=== PATIENT | male | born 1990 | race Two or more races ===

== ENCOUNTER → 2020-05-13 | Day surgery (SDC) | payer OTHER ==
[~2020-05-13] VITALS: Ht 172.7 cm; Wt 77.1 kg
[2020-05-13] VITALS (7 sets, daily range): BP systolic 116–133; BP diastolic 69–82
[~2020-05-13] MED LIST: BSS 15ml BTL ONE; BSS 500ml btl ONE; Bupivacaine 0.75% 30ml vial INJ ONE; Cyclopentolate 2% Opth Sol ONE; DiphenhydrAMINE 50mg/ml Inj IVP PRN; EPINEPHrine 1mg/1ml Amp ONE; Goniotaire 2.5% Opth Soln - 15ml ONE; Indocyanine Green 25mg Inj INJ ONE; Kenalog-40 1ml Vial ONE; LR 1000ml 1,000 ML IVLG SCH; LR 1000ml ONE; Lidocaine 2% MPF 5ml Vial INJ ONE; Maxitrol Opth Oint 3.5gm ONE; Meperidine 25mg/1ml Inj (FOR RIGORS ONLY) IV PRN; Midazolam 2mg/2ml Inj ONE; NS Irrig 1000ml ONE; Phenylephrine 2.5% Op 2ml Soln ONE; Povidone-Iodine 5% opth solution ONE; Proparacaine 0.5% Opth Soln 15ml LEFT EYE SCH; Proparacaine 0.5% Opth Soln 15ml ONE; Sodium Hyaluronate 10 mg/ml 0.85ml ONE; Sterile Water Irrig 1000ml IRRIG ONE; Tetracaine 0.5% Opth 4ml Soln ONE; Tropicamide 1% Opth 15ml Soln ONE; fentaNYL 100 mcg/2 mL IV ONE; prednisoLONE acetate 1% Opth Susp 1ml ONE
[2020-05-13] MEDS: Tropicamide 1% Opth 15ml Soln LEFT EYE SCH ×3 (08:34→08:45)
[2020-05-13] MEDS: Cyclopentolate 2% Opth Sol LEFT EYE SCH ×3 (08:34→08:45)
[2020-05-13] MEDS: Phenylephrine 2.5% Op 2ml Soln LEFT EYE SCH ×3 (08:35→08:45)
--- NOTE | 2020-05-13 09:56 | Anethesia Preoperative Eval ---
Anesthesia Pre-op PMH/ROS General Date of Evaluation: May 13, 2020 Time of Evaluation: 09:53 Anesthesiologist: Faustino ASA Score: ASA 2 Mallampati Score Class I : Soft palate, uvula, fauces, pillars visible Class II: Soft palate, uvula, fauces visible Class III: Soft palate, base of uvula visible Class IV: Only hard plate visible Mallampati Classification: Class II Surgeon: Bruna Diagnosis: L eye retinal detouchment Surgical Procedure: Vitrectomy Anesthesia History: none Family History: no anesthesia problems Allergies: Coded Allergies: No Known Allergies (Unverified , 05/13/20) Medications: see eMAR Patient NPO?: Yes Past Medical History Cardiovascular: Denies: HTN, CAD, PR, valve dz, arrhythmia, other Pulmonary: Denies: asthma, COPD, [place], other Gastrointestinal/Genitourinary: Reports: GERD - mild; Denies: CRI, ESRD, other Neurologic/Psychiatric: Denies: dementia, CVA, depression/anxiety, TIA, other Endocrine: Denies: DM, hypothyroidism, steroids, other HEENT: Denies: cataract (L), cataract (R), glaucoma, [place] (L[place] (R), other Hematology/Immune: Denies: anemia, DVT, bleeding disorder, other Musculoskeletal/Integumentary: Denies: OA, RA, DJD, DDD, edema, other PMH Narrative: as above PSxH Narrative: Eye Sx Anesthesia Pre-op Phys. Exam Physician Exam Last Vital Signs Date Time Temp Pulse Resp B/P (MAP) Pulse Ox O2 Delivery O2 Flow Rate FiO2 05/13/20 08:37 Room Air 05/13/20 08:36 98.4 61 18 133/82 98 Constitutional: NAD Neurologic: CN 2-12 intact Cardiovascular: RRR, no M/R/G Respiratory: CTA Gastrointestinal: S/NT/ND Airway Exam Mallampati Score: Class II MO: full Neck: Flexible ROM: full Teeth: intact Dentures: no upper, no lower Anesthesia Pre-op A/P Labs see chart Studies Pre-op Studies: EKG - SR Risk Assessment & Plan Assessment: ASA 2 Plan: MAC Status Change Before Surgery: No Tate Harmon MD May 13, 2020 09:56
--- NOTE | 2020-05-13 10:52 | Pre-Procedure Note/Attestation ---
Pre-Procedure Note/Attestation Complete Prior to Procedure Planned Procedure: left Procedure Narrative: PPV/SOR/EL/AFE OS Indications for Procedure Pre-Operative Diagnosis: RRD OS Attestation I attest that I discussed the nature of the procedure; its benefits; risks and complications; and alternatives (and the risks and benefits of such alternatives), prior to the procedure, with the patient (or the patient's legal financial services sales representative). I attest that, if there was a reasonable possibility of needing a blood transfusion, the patient (or the patient's legal financial services sales representative) was given the [facility] standardized written summary, pursuant to the [place] Blood Safety Act ([place] Health and Safety Code # 1645, as amended). I attest that I re-evaluated the patient just prior to the surgery and that there has been no change in the patient's H&P, except as documented below: Stefan Rand M.D., MD May 13, 2020 10:52
--- NOTE | 2020-05-13 10:52 | Operative Note - PDOC ---
Operative Note Operative Note Pre-[place] Diagnosis: [place] [facility] [place] Diagnosis: Retinal detachment with retinal breaks, silicone oil, cataract, LEFT EYE Procedure: Procedure: Pars plana vitrectomy, silicone oil removal, endolaser, air-fluid exchange, LEFT EYE Post-op Diagnosis: Same Surgeon: Keyona Anesthesia: local Specimen: none Complications: none Condition: stable Estimated Blood Loss: minimal Drains: none Implant(s) used?: No Indications for Procedure Indications for the procedure: The patient has history of retinal detachment with silicone oil following repair and presents today for surgery. After review of the risks, benefits, alternative and the patient signed informed consent into the medical chart. Description of Procedure Procedure performed: The patient was met in the pre-op area where informed consent was reviewed. The operative eye was verified, marked and dilated. The patient was transferred to the operative suite, where cardiopulmonary monitoring was established and peribulbar anesthetic was administered without complications. The eye was prepped and draped in sterile ophthalmic fashion. Under microscope visualization the 23 gauge infusion line was placed inferotemporally. After visualization of the tip in the vitreous cavity, the infusion line was turned on. The superotemporal and superonasal cannulas were placed. Under BIOM visualization, the posterior pole was visualized and temporal mid-peripheral hole was surrounded by laser. There was a notable cataract present. Silicone oil was then removed and rinsed several cycles to removal small droplets. Inspection of the posterior pole revealed no recurrent retinal detachment. Air fluid exchange was performed. The sclerotomies were removed and sutured closed. Subconjunctival vancomycin and dexamethasone were administered. The lid speculum was removed. The eye was cleaned of prep and drape. Atropine drop and Maxitrol ointment was applied. A pressure patch was placed. The patient was turned over to the anesthesia team and transferred in stable condition to the PACU.RRD OS Stefan Rand M.D., MD May 13, 2020 10:52
--- NOTE | 2020-05-13 11:40 | Immediate Post-Op Evaluation ---
Immediate Post-Op Evalulation Immediate Post-Op Evalulation Procedure: L eye PPV oil removal, fluid to gas exchange, laser treatment Date of Evaluation: May 13, 2020 Time of Evaluation: 11:38 IV Fluids: 500 Blood Products: none Estimated Blood Loss: min Urinary Output: none Blood Pressure Systolic: 131 Blood Pressure Diastolic: 67 Pulse Rate: 68 Respiratory Rate: 18 O2 Sat by Pulse Oximetry: 99 Temperature (Fahrenheit): 98.1 Pain Score (1-10): 1 Nausea: No Vomiting: No Complications none Patient Status: awake, patent, none Hydration Status: adequate Tate Harmon MD May 13, 2020 11:40
--- NOTE | 2020-05-13 12:22 | 48 Hour Post Anesthesia Eval ---
Post Anesthesia Evaluation Procedure: L eye PPV oil removal, fluid to gas exchange, laser treatment Date of Evaluation: May 13, 2020 Time of Evaluation: 12:20 Blood Pressure Systolic: 119 0: 62 Pulse Rate: 68 Respiratory Rate: 18 Temperature (Fahrenheit): 97.6 O2 Sat by Pulse Oximetry: 98 Airway: patent Nausea: No Vomiting: No Pain Intensity: 1 Hydration Status: adequate Cardiopulmonary Status: stable Mental Status/LOC: patient returned to baseline Follow-up Care/Observations: n/a Post-Anesthesia Complications: none Follow-up care needed: ready to discharge Tate Harmon MD May 13, 2020 12:22
== END | disposition home or self-care (01) ==
LOC: SUR 08:11
DX: H33.002 Unspecified retinal detachment with retinal break, left eye (principal); H26.9 Unspecified cataract; K21.9 Gastro-esophageal reflux disease without esophagitis
CPT/HCPCS: 67015; 67039; 94003; J1100; J2250; J2704; J3010; J3370; J3490; J7120; U0004; 94150